=== PATIENT | male | born 2000 | race African-American/Black ===

== ENCOUNTER 2022-04-06 05:05 | Emergency (ER) | payer OTHER ==
[~2022-04-06] VITALS: Ht 182.9 cm; Wt 102.1 kg
[2022-04-06 05:13] VITALS: BP 139/80
--- NOTE | 2022-04-06 05:16 | NUR ---
TO BED AMBULATORY
[2022-04-06] MEDS ORDERED: IBUPROFEN 800 MG TAB PO ONE (06:20)
[2022-04-06] MEDS ORDERED: DEXAMETHASONE 4 MG/ML VIAL PO ONE (06:20)
--- NOTE | 2022-04-06 06:34 | NUR ---
PATIENT MEDICATED PER ORDERS, TOLERATED WELL.
--- NOTE | 2022-04-06 06:55 | NUR ---
Patient lying in bed, A/Ox4, chest rise and fall symmetrical, no s/s of distress.
[2022-04-06] MEDS ORDERED: IBUP-2213 PO (07:24)
[2022-04-06] MEDS ORDERED: LIDO100S PO (07:24)
[2022-04-06 07:28] VITALS: BP 128/77
== END 2022-04-06 07:29 | disposition home or self-care (01) ==
LOC: MED 05:05
DX: J02.8 Acute pharyngitis due to other specified organisms (principal); R03.0 Elevated blood-pressure reading, without diagnosis of hypertension
CPT/HCPCS: 87081; 99283; J1100

== ENCOUNTER 2022-04-08 03:41 | Emergency (ER) | payer OTHER ==
[~2022-04-08] VITALS: Ht 182.9 cm; Wt 102.1 kg
[~2022-04-08 03:41] MED LIST: IBUP-2213 PO; LIDO100S PO
[2022-04-08 03:45] VITALS: BP 131/74
--- NOTE | 2022-04-08 03:45 | NUR ---
TO BED AMBULATORY
--- NOTE | 2022-04-08 03:58 | NUR ---
pt is here feeling worsening of the throat.
[2022-04-08] MEDS ORDERED: AMOXICILLIN 500 MG CAP PO ONE (04:00)
--- NOTE | 2022-04-08 04:00 | NUR ---
alert and oriented x 4. here 2 days ago with the same problem. pt stated he couldnt sleep last night
[2022-04-08] MEDS ORDERED: AMOX500C25 PO (04:04)
[2022-04-08] MEDS ORDERED: BENZSPR PO (04:04)
[2022-04-08] MEDS ORDERED: BENZOCAINE 20% 57 GM CAN MC ONE (04:05)
[2022-04-08 04:39] VITALS: BP 131/76
--- NOTE | 2022-04-08 04:43 | NUR ---
Patient discharged with v/s stable. Written and verbal after care instructions given and explained. Patient verbalized understanding. Ambulatory with steady gait. All questions addressed prior to discharge. Advised to follow up with PMD. pt left with his belonings
== END 2022-04-08 04:39 | disposition home or self-care (01) ==
LOC: MED 03:41
DX: J02.8 Acute pharyngitis due to other specified organisms (principal)
CPT/HCPCS: 99283